=== PATIENT | female | born 1970 | race Caucasian/White ===

== ENCOUNTER 2018-07-26 18:14 | Emergency (ER) | payer OTHER ==
[~2018-07-26] VITALS: Ht 160 cm; Wt 104.3 kg
[~2018-07-26 18:14] MED LIST: AMLODIPINE BESYL5 MG; ASTELIN30 ML; CEFDINIR300 MG PO; CLARINEX-D 121 EACH; CRESTOR5 MG; DEXILANT60 MG; EFFEXOR XR150 MG; IBUPROFEN 600600 M1 PO; LISINOPRIL10 MG; LOESTRIN 24 FE1 EACH; NORCO 5-325 TA1 EACH PO; PROTONIX40 M2; REGLAN 10 MG TA10 MG; RESTORIL15 MG PO; SINGULAIR 10 MG10 M1; SKELAXIN 800 M800 MG PO; SYNTHROID75 MCG; [UNRECOGNIZED DRUG - OTHER]; [UNRECOGNIZED DRUG - OTHER]
[2018-07-26] MEDS ORDERED: VASCEPA0.5 GM PO (18:28)
[2018-07-26 19:44] VITALS: BP 148/97
== END 2018-07-26 19:43 | disposition home or self-care (01) ==
LOC: M.ERS 18:14
DX: R04.0 Epistaxis (principal); G89.18 Other acute postprocedural pain; H57.89 Other specified disorders of eye and adnexa; E78.00 Pure hypercholesterolemia, unspecified; E03.9 Hypothyroidism, unspecified; F32.9 Major depressive disorder, single episode, unspecified; K31.84 Gastroparesis; Z91.040 Latex allergy status; Z88.1 Allergy status to other antibiotic agents; Z88.5 Allergy status to narcotic agent